=== PATIENT | female | born 1980 | race Caucasian/White ===

== ENCOUNTER 2016-06-27 10:52 | Emergency (ER) | payer OTHER, BC ==
[2016-06-27] MEDS ORDERED: SODIUM CHLORIDE 0.9% 2,000 ML ONE (12:15)
[2016-06-27] MEDS ORDERED: DIPHENHYDRAMINE 50 MG/ML VIAL ONE (12:56)
[2016-06-27] MEDS ORDERED: PROCHLORPERAZINE 10 MG/2 ML VIAL ONE (12:56)
== END 2016-06-27 15:10 | disposition home or self-care (01) ==
LOC: ER 10:52
CPT/HCPCS: 36415; 80053; 81001; 85025; 87088; 96361; 96374; 96375

== ENCOUNTER 2016-07-31 09:10 | Emergency (ER) | payer OTHER, BC ==
[2016-07-31] MEDS ORDERED: SODIUM CHLORIDE 0.9% 2,000 ML ONE (09:29)
[2016-07-31] MEDS ORDERED: ONDANSETRON 4 MG VIAL ONE (10:00)
[2016-07-31] MEDS ORDERED: ACETAMINOPHEN 325 MG TAB ONE (11:22)
== END 2016-07-31 15:16 | disposition home or self-care (01) ==
LOC: ER 09:10
DX: O21.1 Hyperemesis gravidarum with metabolic disturbance (principal); Z3A.21 21 weeks gestation of pregnancy; A08.4 Viral intestinal infection, unspecified; J01.20 Acute ethmoidal sinusitis, unspecified; J00 Acute nasopharyngitis [common cold]
CPT/HCPCS: 36415; 80053; 81001; 83690; 84702; 84703; 85025; 87804; 96361; 96374